=== PATIENT | female | born 1995 ===

== ENCOUNTER 2018-05-03 18:45 | Emergency (ER) | payer OTHER ==
[2018-05-03 19:08] VITALS: RESP 16; TEMP 98.5
[2018-05-03] MEDS ORDERED: SODIUM CHLORIDE 0.9% 1000ML 1,000 ML IV ONE (19:24)
[2018-05-03 20:36] VITALS: BP 101/68; PULSE 84; O2SAT 98
== END 2018-05-03 20:49 | disposition home or self-care (01) ==
LOC: ED 18:45
DX: O21.0 Mild hyperemesis gravidarum (principal); Z3A.01 Less than 8 weeks gestation of pregnancy
CPT/HCPCS: 96365; 99283

== ENCOUNTER 2018-12-14 21:45 | Inpatient (IN) | payer OTHER ==
[2018-12-14] MEDS ORDERED: METHYLERGONOVINE MALEATE 0.2 MG/ML SOL IM PRN (23:43)
[2018-12-14] MEDS ORDERED: LACTATED RINGERS 1,000 ML IV PRN (23:43)
[2018-12-14] MEDS ORDERED: SODIUM CHLORIDE 0.9% FLUSH 10 ML SOL IV PRN (23:43)
[2018-12-14] MEDS ORDERED: MEPIVACAINE HCL 1% MPF 30 ML/VIAL SOL INFIL PRN (23:43)
[2018-12-14] MEDS ORDERED: OXYTOCIN 10000 MU/ML SOL IM PRN (23:43)
[2018-12-14] MEDS ORDERED: CARBOPROST 250 MCG/ML SOL IM PRN (23:43)
[2018-12-15] MEDS ORDERED: ZOLPIDEM TARTRATE 5 MG TAB PO ONE (01:15)
[2018-12-15] MEDS ORDERED: ZOLPIDEM TARTRATE 5 MG TAB ONE (01:23)
[2018-12-15 01:56] LABS: BASOPHILS % (AUTO) 0 % (0-3); EOSINOPHILS % (AUTO) 1 % (0-9); HEMATOCRIT 36 % (35-47); LYMPHOCYTES % (AUTO) 15.8 % (10-50); MEAN CORPUSCULAR HEMOGLOBIN 28.9 pg (27.0-32.0); MEAN CORPUSCULAR VOLUME 88 fL (81-99); MONOCYTES % (AUTO) 6.7 % (0-12); NEUTROPHILS % (AUTO) 75.9 % (37-80)
[2018-12-15] MEDS: FENTANYL 100MCG/2ML SOL IV PRN ×2 (02:21→04:34)
[2018-12-15] MEDS: SODIUM CHLORIDE 0.9% FLUSH 10 ML SOL IV SCH ×3 (03:15→15:15)
[2018-12-15] MEDS ORDERED: NALOXONE HYDROCHLORIDE 0.4 MG/ML SOL IV PRN (08:41)
[2018-12-15] MEDS ORDERED: NALBUPHINE HCL 20 MG/ML SOL IV PRN (08:41)
[2018-12-15] MEDS ORDERED: DIPHENHYDRAMINE 50 MG/ML SOL IV PRN (08:41)
[2018-12-15] MEDS ORDERED: EPHEDRINE SULFATE 50 MG/ML SOL IV PRN (08:41)
[2018-12-15] MEDS ORDERED: LIDOCAINE HCL 2% MPF 10 ML SOL ONE ×2 (09:07→22:45)
[2018-12-15] MEDS ORDERED: FENTANYL 250 MCG/ 5ML SOL ONE (09:07)
[2018-12-15] MEDS ORDERED: LIDOCAINE 1% W/EPI MPF 30 ML SOL ONE (09:07)
[2018-12-15] MEDS ORDERED: ROPIVACAINE HYDROCHLORIDE 5 MG/ML SOL ONE (09:07)
[2018-12-15] MEDS: LACTATED RINGERS 1,000 ML IV SCH ×5 (09:42→23:49)
[2018-12-15] MEDS ORDERED: TERBUTALINE SULFATE 1 MG/ML SOL SC PRN (13:11)
[2018-12-15] MEDS ORDERED: OXYTOCIN 10000 MU/ML 20,000 MU in LACTATED RINGERS 1,000 ML IV SCH (13:15)
[2018-12-15] MEDS ORDERED: LACTATED RINGERS 1,000 ML IV SCH (13:15)
[2018-12-15] MEDS ORDERED: CITRIC ACID/SODIUM CITRATE SOL PO ONE ×2 (23:51→23:53)
[2018-12-16] MEDS ORDERED: CEFAZOLIN SODIUM 1 GM PDS 2 GM in SODIUM CHLORIDE 0.9% 100 ML 100 ML IV ONE (00:15)
[2018-12-16] MEDS ORDERED: AZITHROMYCIN 500 MG PDS 500 MG in SODIUM CHLORIDE 0.9% 250 ML 250 ML IV ONE (00:15)
[2018-12-16] MEDS ORDERED: FENTANYL 100MCG/2ML SOL ONE (00:28)
[2018-12-16] MEDS ORDERED: LIDOCAINE HCL 2% MPF 10 ML SOL ONE ×2 (00:29→00:42)
[2018-12-16] MEDS ORDERED: LACTATED RINGERS 1,000 ML with OXYTOCIN 10000 MU/ML 20 MU IV ONE (00:31)
[2018-12-16] MEDS ORDERED: CEFAZOLIN SODIUM 1 GM PDS ONE (00:42)
[2018-12-16] MEDS ORDERED: AZITHROMYCIN 500 MG PDS IV ONE (00:42)
[2018-12-16] MEDS ORDERED: PHENYLEPHRINE HYDROCHLORIDE 10 MG/ML SOL ONE (00:42)
[2018-12-16] MEDS ORDERED: OXYTOCIN 10000 MU/ML SOL ONE (00:42)
[2018-12-16] MEDS ORDERED: BUPIVACAINE/EPI 0.25% 50 ML SOL ONE (01:13)
[2018-12-16] MEDS ORDERED: KETOROLAC TROMETHAMINE 30 MG/ML SOL ONE (01:50)
[2018-12-16] MEDS: KETOROLAC TROMETHAMINE 30 MG/ML SOL IV PRN ×3 (01:53→15:42)
[2018-12-16] MEDS: LACTATED RINGERS 1,000 ML IV SCH ×3 (02:40→05:50)
[2018-12-16] MEDS ORDERED: BISACODYL 10 MG SUP PR PRN (03:15)
[2018-12-16] MEDS ORDERED: METHYLERGONOVINE MALEATE 0.2 MG TAB PO PRN (03:15)
[2018-12-16] MEDS ORDERED: TEMAZEPAM 15MG 15 MG CAP PO PRN (03:15)
[2018-12-16] MEDS ORDERED: WITCH HAZEL 1 EA PAD TOP PRN (03:15)
[2018-12-16] MEDS ORDERED: ONDANSETRON HCL 4 MG/2 ML SOL IV PRN (03:15)
[2018-12-16] MEDS ORDERED: DIPHENHYDRAMINE 25 MG CAP PO PRN (03:15)
[2018-12-16] MEDS ORDERED: FLEET ENEMA PR PRN (03:15)
[2018-12-16] MEDS ORDERED: BENZOCAINE/MENTHOL 1 SPR TOP PRN (03:15)
[2018-12-16] MEDS: APAP/HYDROCODONE 1 EACH TABLET PO PRN ×3 (03:42→19:57)
[2018-12-16] MEDS ORDERED: ALBUTEROL HFA 60 PUFF/INHALER INH PRN (04:24)
[2018-12-16] MEDS: SODIUM CHLORIDE 0.9% FLUSH 10 ML SOL IV SCH ×4 (05:07→15:42)
[2018-12-16] MEDS ORDERED: MORPHINE SULFATE 10 MG/ML SOL IV PRN (07:33)
[2018-12-16 07:38] LABS: ABO O; ANTIBODY SCREEN Negative; RH TYPE Positive
[2018-12-16] MEDS: MULTIVITAMIN2 1 EA TAB PO SCH (08:56)
[2018-12-16] MEDS: DOCUSATE SODIUM 100 MG SGL PO SCH ×2 (08:56→20:00)
[2018-12-16] MEDS: FOLIC ACID 1 MG TAB PO SCH (08:56)
[2018-12-17] MEDS: SODIUM CHLORIDE 0.9% FLUSH 10 ML SOL IV SCH ×4 (00:09→23:50)
[2018-12-17] MEDS: APAP/HYDROCODONE 1 EACH TABLET PO PRN ×5 (00:09→23:38)
[2018-12-17] MEDS: LACTATED RINGERS 1,000 ML IV SCH (00:36)
[2018-12-17] MEDS: IBUPROFEN 600 MG TAB PO PRN ×3 (02:36→20:00)
[2018-12-17] MEDS: MULTIVITAMIN2 1 EA TAB PO SCH (09:09)
[2018-12-17] MEDS: DOCUSATE SODIUM 100 MG SGL PO SCH ×2 (09:09→20:00)
[2018-12-17] MEDS: FOLIC ACID 1 MG TAB PO SCH (09:09)
[2018-12-18] MEDS: APAP/HYDROCODONE 1 EACH TABLET PO PRN ×3 (06:54→21:14)
[2018-12-18] MEDS: IBUPROFEN 600 MG TAB PO PRN ×2 (10:06→16:21)
[2018-12-18] MEDS: MULTIVITAMIN2 1 EA TAB PO SCH (10:06)
[2018-12-18] MEDS: DOCUSATE SODIUM 100 MG SGL PO SCH ×2 (10:06→21:14)
[2018-12-18] MEDS: FOLIC ACID 1 MG TAB PO SCH (10:07)
[2018-12-19 00:13] VITALS: TEMP 97.9
[2018-12-19] MEDS: IBUPROFEN 600 MG TAB PO PRN ×2 (02:11→08:46)
[2018-12-19] MEDS: APAP/HYDROCODONE 1 EACH TABLET PO PRN ×2 (03:11→11:18)
[2018-12-19 07:44] VITALS: BP 118/73; PULSE 77; RESP 16; O2SAT 97
[2018-12-19] MEDS: DOCUSATE SODIUM 100 MG SGL PO SCH (08:46)
[2018-12-19] MEDS: FOLIC ACID 1 MG TAB PO SCH (08:46)
[2018-12-19] MEDS: MULTIVITAMIN2 1 EA TAB PO SCH (08:46)
== END 2018-12-19 11:40 | disposition home or self-care (01) | DRG 540 ==
LOC: OB 21:45 → UNDOADMOB 21:45 → INTOOBSV 21:45 → OBSVTOIN 21:45
PROVIDERS: ADMIT Family Medicine; ATTEND Family Medicine
PROC: 10907ZC Drainage of Amniotic Fluid, Therapeutic from Products of Conception, Via Natural or Artificial Opening (ICD-10-PCS; 2018-12-15)
PROC: 3E033VJ Introduction of Other Hormone into Peripheral Vein, Percutaneous Approach (ICD-10-PCS; 2018-12-15)
PROC: 4A0H74Z Measurement of Products of Conception, Cardiac Electrical Activity, Via Natural or Artificial Opening (ICD-10-PCS; 2018-12-16)
PROC: 4A0H7FZ Measurement of Products of Conception, Cardiac Rhythm, Via Natural or Artificial Opening (ICD-10-PCS; 2018-12-16)
PROC: 4A0H7CZ Measurement of Products of Conception, Cardiac Rate, Via Natural or Artificial Opening (ICD-10-PCS; 2018-12-16)
PROC: 10D00Z1 Extraction of Products of Conception, Low, Open Approach (ICD-10-PCS; principal; 2018-12-16 00:10)
DX: O76 Abnormality in fetal heart rate and rhythm complicating labor and delivery (principal); Z3A.40 40 weeks gestation of pregnancy; O64.2XX0 Obstructed labor due to face presentation, not applicable or unspecified; O61.8 Other failed induction of labor; Z37.0 Single live birth; Z67.40 Type O blood, Rh positive
CPT/HCPCS: 36415; 59025; 84112; 85018; 85025; 86850; 86900; 86901; 94762; J0456; J0670; J0690; J1885; J2590; J2795; J3010; A9270-GY; J2370